=== PATIENT | female | born 1980 | race Caucasian/White ===

== ENCOUNTER 2016-09-04 22:48 | Emergency (ER) | payer BC ==
[~2016-09-04] VITALS: Ht 165.1 cm; Wt 65.8 kg
[2016-09-04 23:05] VITALS: BP 128/72
[2016-09-05] MEDS ORDERED: KETOROLAC TROMETHAMINE 30 MG/ML SYRINGE. IV ONE (00:45)
[2016-09-05] MEDS ORDERED: IV NORMAL SALINE 1000ML BAG 1,000 ML IV ONE (00:45)
[2016-09-05] MEDS ORDERED: ONDANSETRON PF 4 MG/2 ML VIAL. IV ONE (00:45)
[2016-09-05 00:53] LABS: BILIRUBIN,URINE NEGATIVE (NEG); GLUCOSE,URINE NEGATIVE (NEG); NITRITE,URINE NEGATIVE (NEG); PROTEIN,URINE NEGATIVE (NEG-TRACE); UROBILINOGEN,URINE 0.2 mg/dL (0.2 mg/dL)
[2016-09-05 00:54] LABS: BASO # 0.1 x10^3/uL (0.0-0.2); BASO % 1 % (0-3); EOS % 1 % (0-3); HEMATOCRIT 39.4 % (36.0-47.0); HEMOGLOBIN 13.4 g/dL (12.0-15.5); LYMPH # 3.5 x10^3/uL (1.0-4.8); LYMPH % 33 % (24-48); MEAN CORPUSCULAR HEMOGLOBIN 32 pg (25-35); MEAN CORPUSCULAR HGB CONC 34 g/dL (31-37); MEAN CORPUSCULAR VOLUME 95 fL (79-100); MONO % 5 % (0-9); NEUT % 60 % (31-73); PLATELET COUNT 294 x10^3/uL (140-400); RED BLOOD COUNT 4.14 x10^6/uL (3.50-5.40); RED CELL DISTRIBUTION WIDTH 12.8 % (11.5-14.5); WHITE BLOOD COUNT 10.7 x10^3/uL (4.0-11.0)
[2016-09-05 01:01] LABS: CALCIUM 9.2 mg/dL (8.5-10.1); CREATININE 0.7 mg/dL (0.6-1.0); GFR 94.2; POTASSIUM 3.9 mmol/L (3.5-5.1)
[2016-09-05 01:08] LABS: ALBUMIN 3.9 g/dL (3.4-5.0); ALBUMIN/GLOBULIN RATIO 1.3 (1.0-1.7); TOTAL BILIRUBIN 0.6 mg/dL (0.2-1.0); TOTAL PROTEIN 6.8 g/dL (6.4-8.2)
[2016-09-05 01:13] LABS: BACTERIA,URINE 0 /HPF (0-FEW); SQUAMOUS EPITHELIAL CELL,UR FEW /LPF; WBC,URINE OCC /HPF (0-4)
[2016-09-05 01:15] LABS: NEG OBC UR NEG; POS OBC UR POS
--- NOTE | 2016-09-05 01:20 | RAD ---
Examination: Ultrasound abdomen limited HISTORY Right upper quadrant pain. COMPARISON None available Findings: The gallbladder is moderately distended. No evidence of gallstones identified. The visualized liver grossly appears unremarkable. The right kidney measures 12.4 centimeters in length. The pancreas is not well visualized due to bowel gas. The visualized IVC appears patent. The common bile duct measures 3 millimeters in transverse dimension. IMPRESSION Moderately distended gallbladder with no evidence of gallstones within. Electronically signed by: Ravinder Marques (Sep 05, 2016 01:15:39)
--- NOTE | 2016-09-05 01:28 | PHYS DOC ---
Past Medical History Past Medical History: No Pertinent History Past Surgical History: Other Additional Past Surgical Histo: D&C 2002 Alcohol Use: None Drug Use: None Adult General Chief Complaint Chief Complaint: ABDOMINAL PAIN HPI HPI Patient is a 36 year old female who presents here today complaining of right upper quadrant pain that started approximately 9 PM. Patient has no past medical history. Patient has no history of hypertension diabetes liver longer kidney problem. Patient does not smoke drink or do drugs. Patient is allergic to any medications. Patient's last period was August 12, 2016. Patient has had no surgeries in the past. Patient denies any fevers shaking chills nausea vomiting diarrhea chest pain shortness of breath melena or bright red blood per rectum dysuria frequency or urgency. Upon my evaluation at approximately 1:15 the patient reports she is completely pain-free after receiving Toradol IV in the ER. While in the ER patient had labs which were drawn which were all unremarkable. Patient's CBC CMP and urine were all normal. Patient had an ultrasound of her gallbladder which revealed no acute pathology. There were no stones in her gallbladder. There is no evidence of cholecystitis. Patient's physical exam was significant for an abdominal exam that was normal. Abdomen was soft nontender no rebound or guarding. No Martinez's point tenderness at McBurney's point tenderness no rebound guarding NABS. A/P #1 abdominal pain. Etiology unclear. Some clear whether this patient had gallstone disease with a passed stone prior to the ultrasound. Patient is currently pain-free. Patient be discharged home in stable condition and instructed to follow-up with her doctor if the pain returns. Review of Systems Review of Systems Constitutional: Denies fever or chills [] Eyes: Denies change in visual acuity, redness, or eye pain [] HENT: Denies nasal congestion or sore throat [] All other review systems are negative except as documented in history of present illness portion. Current Medications Current Medications Current Medications Medications (Trade) Dose Ordered Sig/Gardenia Start Time Stop Time Status Last Admin Dose Admin Ketorolac Tromethamine (Toradol) 15 mg 1X ONCE 09/05/16 00:45 09/05/16 00:46 DC 09/05/16 00:32 15 MG Ondansetron HCl (Zofran) 4 mg 1X ONCE 09/05/16 00:45 09/05/16 00:46 DC 09/05/16 00:32 4 MG Sodium Chloride (Iv Sodium Chloride 0.9% 1000ml Bag) 1,000 ml @ 999 mls/hr 1X ONCE 09/05/16 00:45 09/05/16 01:45 09/05/16 00:31 999 MLS/HR Allergies Allergies Allergies Coded Allergies Type Severity Reaction Last Updated Verified No Known Drug Allergies 09/04/16 No Physical Exam Physical Exam Constitutional: Well developed, well nourished, no acute distress, non-toxic appearance. [] HENT: Normocephalic, atraumatic, bilateral external ears normal, oropharynx moist, no oral exudates, nose normal. [] Eyes: PERRLA, EOMI, conjunctiva normal, no discharge. [] Neck: Normal range of motion, no tenderness, supple, no stridor. [] Cardiovascular:Heart rate regular rhythm, no murmur [] Lungs & Thorax: Bilateral breath sounds clear to auscultation [] Abdomen: Bowel sounds normal, soft, no tenderness, no masses, no pulsatile masses. [] Skin: Warm, dry, no erythema, no rash. [] Back: No tenderness, no CVA tenderness. [] Extremities: No tenderness, no cyanosis, no clubbing, ROM intact, no edema. [] Neurologic: Alert and oriented X 3, normal motor function, normal sensory function, no focal deficits noted. [] Psychologic: Affect normal, judgement normal, mood normal. [] Current Patient Data Vital Signs Vital Signs Date Time Temp Pulse Resp B/P Pulse Ox O2 Delivery O2 Flow Rate FiO2 09/04/16 23:05 98.3 67 20 128/72 100 Room Air 98.3 Lab Values Laboratory Tests Test 09/04/16 23:10 09/04/16 23:30 Urine Collection Type Unknown Urine Color Yellow Urine Clarity Clear Urine pH 7.0 Urine Specific [place] 1.010 Urine Protein Negativemg/dL (NEG-TRACE) Urine Glucose (UA) Negativemg/dL (NEG) Urine Ketones (Stick) Negativemg/dL (NEG) Urine Blood Negative (NEG) Urine Nitrite Negative (NEG) Urine Bilirubin Negative (NEG) Urine Urobilinogen Dipstick 0.2mg/dL (0.2 mg/dL) Urine Leukocyte Esterase Negative (NEG) Urine RBC 3-5/HPF (0-2) Urine WBC Occ/HPF (0-4) Urine Squamous Epithelial Cells Few/LPF Urine Bacteria 0/HPF (0-FEW) Urine Test Negative (NEG) White Blood Count 10.7x10^3/uL (4.0-11.0) Red Blood Count 4.14x10^6/uL (3.50-5.40) Hemoglobin 13.4g/dL (12.0-15.5) Hematocrit 39.4% (36.0-47.0) Mean Corpuscular Volume 95fL (79-100) Mean Corpuscular Hemoglobin 32pg (25-35) Mean Corpuscular Hemoglobin Concent 34g/dL (31-37) Red Cell Distribution Width 12.8% (11.5-14.5) Platelet Count 294x10^3/uL (140-400) Neutrophils (%) (Auto) 60% (31-73) Lymphocytes (%) (Auto) 33% (24-48) Monocytes (%) (Auto) 5% (0-9) Eosinophils (%) (Auto) 1% (0-3) Basophils (%) (Auto) 1% (0-3) Neutrophils # (Auto) 6.5x10^3uL (1.8-7.7) Lymphocytes # (Auto) 3.5x10^3/uL (1.0-4.8) Monocytes # (Auto) 0.6x10^3/uL (0.0-1.1) Eosinophils # (Auto) 0.1x10^3/uL (0.0-0.7) Basophils # (Auto) 0.1x10^3/uL (0.0-0.2) Sodium Level 142mmol/L (136-145) Potassium Level 3.9mmol/L (3.5-5.1) Chloride Level 105mmol/L (98-107) Carbon Dioxide Level 24mmol/L (21-32) Anion Gap 13 (6-14) Blood Urea Nitrogen 20mg/dL (7-20) Creatinine 0.7mg/dL (0.6-1.0) Estimated GFR (Cockcroft-Gault) 94.2 BUN/Creatinine Ratio 29 (6-20) H Glucose Level 93mg/dL (70-99) Calcium Level 9.2mg/dL (8.5-10.1) Total Bilirubin 0.6mg/dL (0.2-1.0) Aspartate Amino Transferase (AST) 14U/L (15-37) L Alanine Aminotransferase (ALT) 14U/L (14-59) Alkaline Phosphatase 42U/L (46-116) L Total Protein 6.8g/dL (6.4-8.2) Albumin 3.9g/dL (3.4-5.0) Albumin/Globulin Ratio 1.3 (1.0-1.7) Lipase 183U/L (73-393) Laboratory Tests 09/04/16 23:30 Laboratory Tests 09/04/16 23:30 EKG EKG [] Radiology/Procedures Radiology/Procedures [] Course & Med Decision Making Course & Med Decision Making Pertinent Labs and Imaging studies reviewed. (See chart for details) [] A/P this is a 36-year-old female who presents here today complaining of right upper quadrant pain that started approximately 9 PM. Patient was given Toradol and Zofran in the ER with complete resolution of her discomfort. Patient 's workup in ERs been negative with normal labs and an ultrasound. Patient will be sent home to follow up with her primary care physician. No medications are needed at this time since the patient with. Patient will return to the ER she has any worsening pain fevers or any other concerns. Dragon Disclaimer Dragon Disclaimer This electronic medical record was generated, in whole or in part, using a voice recognition dictation system. Departure Departure Impression: Primary Impression: Abdominal pain Disposition: HOME, SELF-CARE Condition: IMPROVED Referrals: NO PCP (PCP) Patient Instructions: Abdominal Pain (Nonspecific) DILMA MONROY MD Sep 05, 2016 01:28
== END 2016-09-05 02:05 | disposition home or self-care (01) ==
LOC: ER 22:48
DX: R10.11 Right upper quadrant pain (principal)
CPT/HCPCS: 36415; 76705; 80053; 81001; 81025; 83690; 85027; 96361; 96374; 96375; 99285; J1885; J2405; J7030